=== PATIENT | male | born 1965 | race Caucasian/White ===

== ENCOUNTER 2023-05-27 07:32 | Inpatient (IN) | payer OTHER ==
[~2023-05-27] VITALS: Ht 175.3 cm; Wt 122.9 kg
[2023-05-27] MEDS ORDERED: ACETAMINOPHEN 500 MG TABLET PO ONE (08:00)
[2023-05-27] MEDS ORDERED: SCOPOLAMINE HYDROBROMIDE 1 MG PATCH .72 H (TRANSDERM-SCOP) TD ONE ×2 (08:00→08:02)
[2023-05-27] MEDS ORDERED: oxyCODONE HCL 10 MG TAB.ER.12H PO ONE ×2 (08:00→08:02)
[2023-05-27] MEDS ORDERED: CEFAZOLIN SOD 2 GM in D5W 50 ML IV ONE (08:00)
[2023-05-27] MEDS ORDERED: CELECOXIB 100 MG CAPSULE PO ONE (08:00)
[2023-05-27] MEDS ORDERED: GABAPENTIN 300 MG CAPSULE PO ONE (08:00)
[2023-05-27] MEDS ORDERED: CELECOXIB 100 MG CAPSULE ONE (08:01)
[2023-05-27] MEDS ORDERED: ACETAMINOPHEN 500 MG TABLET ONE (08:02)
[2023-05-27] MEDS ORDERED: GABAPENTIN 300 MG CAPSULE ONE (08:02)
[2023-05-27] MEDS ORDERED: DESFLURANE 15 MIN GAS INH ONE (10:00)
[2023-05-27] MEDS ORDERED: NS IRRIG SOLN 1000 ML IR ONE (10:00)
[2023-05-27] MEDS ORDERED: ONDANSETRON HCL 4 MG/2 ML VIAL ONE (10:00)
[2023-05-27] MEDS ORDERED: KETOROLAC TROMETHAMINE 30 MG VIAL ONE (10:00)
[2023-05-27] MEDS ORDERED: MORPHINE SULFATE 10MG/10ML PF AMP ONE (10:00)
[2023-05-27] MEDS ORDERED: LIDOCAINE 2%, 20 ML MDV ONE (10:00)
[2023-05-27] MEDS ORDERED: PROPOFOL 200MG/ 20ML VIAL (DIPRIVAN) IV ONE (10:00)
[2023-05-27] MEDS ORDERED: LR 1,000 ML IV.SOLN IV ONE (10:00)
[2023-05-27] MEDS ORDERED: DEXAMETHASONE SOD PHOSPHATE 4 MG/ML VIAL ONE (10:00)
[2023-05-27] MEDS ORDERED: TRANEXAMIC ACID 1,000 MG/10 ML VIAL ONE (10:00)
[2023-05-27] MEDS ORDERED: WATER FOR IRRIGATION,STERILE 1,000 ML IRRIG.SOLN IR ONE (10:00)
[2023-05-27] MEDS ORDERED: BUPIVACAINE /PF 0.5% 30 ML VIAL ONE (10:00)
[2023-05-27] MEDS ORDERED: VANCOMYCIN HCL 1000 MG/VIAL IV ONE (10:00)
[2023-05-27] MEDS ORDERED: SUGAMMADEX SODIUM 200 MG/2 ML VIAL IV ONE (10:00)
[2023-05-27] MEDS ORDERED: ROCURONIUM BROMIDE 10 MG/ML (ZEMURON) ONE (10:00)
[2023-05-27] MEDS ORDERED: MIDAZOLAM HCL/PF 2 MG/2 ML SYRINGE ONE (10:00)
[2023-05-27] MEDS ORDERED: PERC10 PO (10:09)
[2023-05-27] MEDS ORDERED: IBUP-2101 PO (10:09)
[2023-05-27] MEDS ORDERED: MULT-1089 PO (10:09)
[2023-05-27] MEDS ORDERED: ACET1TAB93 PO (10:09)
[2023-05-27] MEDS ORDERED: IBUP-1970 PO (10:09)
[2023-05-27] MEDS ORDERED: ACET325T PO (10:09)
[2023-05-27] MEDS ORDERED: VITD2000 PO (10:09)
[2023-05-27] MEDS ORDERED: OMEP40CA20 PO (10:09)
[2023-05-27] MEDS ORDERED: oxyCODONE HCL 5 MG TABLET PO PRN ×2 (11:00)
[2023-05-27] MEDS ORDERED: HYDROmorphone 1 MG/ML INJ. CARTRIDGE IVP PRN ×5 (11:00→11:15)
[2023-05-27] MEDS ORDERED: traMADol HCL HCL 50 MG TABLET (ULTRAM) PO PRN (11:00)
[2023-05-27] MEDS ORDERED: LORATADINE 10 MG TABLET PO PRN (11:00)
[2023-05-27] MEDS ORDERED: METOCLOPRAMIDE HCL 10 MG/2 ML VIAL IVP PRN ×2 (11:15→13:30)
[2023-05-27] MEDS ORDERED: ONDANSETRON HCL 4 MG/2 ML VIAL IVP PRN ×2 (11:15→11:45)
[2023-05-27] MEDS ORDERED: MIDAZOLAM HCL 2 MG/2 ML VIAL (VERSED) IVP PRN (11:15)
[2023-05-27] MEDS ORDERED: NALOXONE HCL 0.4 MG/ML AMP (NARCAN) IVP PRN ×4 (11:15→13:30)
[2023-05-27] MEDS ORDERED: LR 1,000 ML IV SCH (11:15)
[2023-05-27] MEDS ORDERED: DIPHENHYDRAMINE INJ 50 MG/ML VIAL IVP PRN (11:15)
[2023-05-27] MEDS ORDERED: MEPERIDINE HCL/PF 25 MG/ML DISP.SYRIN IVP PRN (11:15)
[2023-05-27] MEDS ORDERED: BISACODYL 10 MG/SUPPOSITORY RC PRN (13:30)
[2023-05-27] MEDS ORDERED: LACTULOSE 20 GM/30 ML UDC PO PRN (13:30)
[2023-05-27] MEDS ORDERED: DIPHENHYDRAMINE HCL 25 MG CAPSULE PO PRN (13:30)
[2023-05-27] MEDS ORDERED: ACETAMINOPHEN 500 MG TABLET PO SCH (14:00)
[2023-05-27] MEDS ORDERED: KETOROLAC TROMETHAMINE 10 MG TABLET (TORADOL) PO SCH (15:00)
[2023-05-27 15:11] VITALS: BP_SYST 131; PULSE 71; RESP 17; TEMP 97
[2023-05-27 15:19] VITALS: O2SAT 99
[2023-05-27] MEDS: ceFAZolin SODIUM 2 GM in D5W 50 ML IV SCH (16:34)
[2023-05-27] MEDS ORDERED: TAMSULOSIN HCL 0.4 MG CAP PO SCH (17:00)
[2023-05-27 17:30] VITALS: BP_SYST 135; PULSE 84; RESP 17; TEMP 98.4; O2SAT 97
[2023-05-27 20:00] VITALS: BP_SYST 114; PULSE 72; RESP 18; TEMP 98; O2SAT 94
[2023-05-27] MEDS: SENNOSIDES/DOCUSATE SODIUM 1 TAB TABLET(SENOKOT-S) PO SCH (21:00)
[2023-05-28] VITALS (7 sets, daily range): BP systolic 113–122; PULSE 70–75; RESP 18; TEMP 97.6–98.4; O2SAT 94–97
[2023-05-28] MEDS: ceFAZolin SODIUM 2 GM in D5W 50 ML IV SCH (00:35)
[2023-05-28 05:10] LABS: BASOPHILS % (AUTO) 0.2 % (0.0-2.0); EOSINOPHILS % (AUTO) 0.2 % (0.0-4.0); HEMATOCRIT 39.4 % (36-54); HEMOGLOBIN 13.3 g/dL (14.0-18.0); LYMPHOCYTES # (AUTO) 1.5 K/uL (1.0-5.5); LYMPHOCYTES % (AUTO) 15.4 % (20.5-51.5); MEAN CORPUSCULAR HEMOGLOBIN 30 pg (27-31); MEAN CORPUSCULAR HGB CONC 34 % (32-36); MEAN CORPUSCULAR VOLUME 89 fL (79.0-98.0); MONOCYTES # (AUTO) 0.9 K/uL (0.0-1.0); NEUTROPHILS # (AUTO) 7.3 K/uL (1.8-7.7); NEUTROPHILS % (AUTO) 75.2 % (40.0-70.0); PLATELET COUNT (AUTO) 231 K/uL (130-430); RED BLOOD CELL COUNT(AUTO) 4.44 MIL/uL (4.2-6.2); RED CELL DISTRIBUTION WIDTH 13.8 % (9.0-15.0); WHITE BLOOD COUNT (AUTO) 9.7 K/uL (4.8-10.8)
[2023-05-28 05:42] LABS: CALCIUM 8.8 mg/dL (8.4-11.0); CREATININE 0.97 mg/dL (0.55-1.30); POTASSIUM 3.7 mmol/L (3.5-5.1); TOTAL BILIRUBIN 0.4 mg/dL (0.0-1.0); TOTAL PROTEIN, SERUM 6.4 g/dL (6.4-8.3)
[2023-05-28] MEDS: SENNOSIDES/DOCUSATE SODIUM 1 TAB TABLET(SENOKOT-S) PO SCH (08:07)
[2023-05-28] MEDS ORDERED: DECADRON 4 MG TABLET PO SCH (09:00)
[2023-05-28] MEDS ORDERED: ASPIRIN 81 MG TAB.CHEW PO SCH (09:00)
[2023-05-28] MEDS ORDERED: CELECOXIB 200 MG CAPSULE PO SCH (11:00)
[2023-05-28] MEDS ORDERED: ASA81 PO (12:05)
== END 2023-05-28 12:20 | disposition home health service (06) | DRG 470 ==
LOC: SMU 07:32
PROVIDERS: ADMIT Student in an Organized Health Care Education/Training Program; ATTEND Student in an Organized Health Care Education/Training Program
PROC: 0SR90JZ Replacement of Right Hip Joint with Synthetic Substitute, Open Approach (ICD-10-PCS; principal; 2023-05-27 10:07)
DX: M16.11 Unilateral primary osteoarthritis, right hip (principal)
CPT/HCPCS: 36415; 72170-TC; 73501; 80053; 85025; 87081; 88304; 88311; 96379; 97110-GP; 97116-GP; 97530-GP; A4649; C1713; C1776; J0690; J1100; J1170; J1200; J1885; J2001; J2274; J2405; J2704; J3370; J3465; J3490; J7060; J7120; J8540